=== PATIENT | male | born 1980 | race African-American/Black ===

== ENCOUNTER 2017-05-21 18:16 | Emergency (ER) | payer OTHER ==
[~2017-05-21] VITALS: Ht 165.1 cm; Wt 79.5 kg
[~2017-05-21 18:16] MED LIST: ALBU8.5H3 INH; CETI10CA PO; FLUT9.9S NASAL; GUAI473L22 PO; IBUP-1542 PO
[2017-05-21 18:29] VITALS: Ht 165.1 cm; Wt 79.5 kg
--- NOTE | 2017-05-21 20:31 | ERD ---
ER Documentation Chief Complaint Chief Complaint right hand pain/ 4&5 finger swelling x2 days. HPI 36-year-old male presents here to emergency department for complaints of right hand pain and swelling for 2 days. Patient fell on the right hand, landed on the dorsal aspect of the right hand, noted some swelling and pain, unable to remove the ring on the fourth and fifth finger because of the swelling. Patient 's complaint of pain throbbing pain, 6/10 scale, worse upon touching the area and movement. Patient did not take any medications to help with symptoms. Patient denies any numbness or tingling. Patient did not take any medications to help with symptoms. ROS All systems reviewed and are negative except as per history of present illness. Medications Home Meds Active Scripts Hydrocodone/Acetaminophen ([place]ora 5-325 Tablet) 1 Each Tablet, 1 TAB PO Q6H Y for SEVERE PAIN LEVEL 7-10, #20 TAB Prov:BEBETO AN NP 05/21/17 Ibuprofen* (Motrin*) 600 Mg Tab, 600 MG PO Q6H Y for PAIN AND OR ELEVATED TEMP, #30 TAB Prov:BEBETO AN NP 05/21/17 Fluticasone Propionate (Flonase Allergy Relief) 9.9 Ml [place].susp, 1 SPRAY NASAL BID, #1 BOTTLE TO EACH NOSTRIL Prov:BEBETO AN NP 02/24/16 Ibuprofen* (Motrin*) 600 Mg Tab, 600 MG PO Q6H Y for PAIN AND OR ELEVATED TEMP, #30 TAB Prov:BEBETO AN NP 02/24/16 Cetirizine Hcl* (Zyrtec*) 10 Mg Capsule, 10 MG PO DAILY, #30 TAB.CHEW Prov:BEBETO AN NP 02/24/16 Guaifenesin-Codeine Phosphate* (Guaifenesin* AC Cough Syrup) 473 Ml Liquid, 5 ML PO Q4H Y for COUGH, #60 ML Prov:BEBETO AN NP 02/24/16 Albuterol Sulfate* (Proair HFA*) 8.5 Gm Hfa.aer.ad, 2 PUFF INH Q4H Y for WHEEZING AND SOB, #1 INHALER Prov:BEBETO AN NP 02/24/16 Reported Medications [none] Unknown Strength No Conflict Check 02/24/16 Allergies Allergies: Coded Allergies: tramadol (Verified Allergy, Mild, 05/21/17) PMhx/Soc History of Surgery: No Anesthesia Reaction: No Hx Neurological Disorder: No Hx Respiratory Disorders: Yes (bronchitis) Hx Cardiac Disorders: No Hx Psychiatric Problems: No Hx Miscellaneous Medical Probl: No Hx Alcohol Use: Yes (socially) Hx Substance Use: Yes (daily: last used today) Hx Tobacco Use: Yes Smoking Status: Current some day smoker FmHx Family History: No coronary disease, No diabetes, No other Physical Exam Vitals Vital Signs Date Time Temp Pulse Resp B/P Pulse Ox O2 Delivery O2 Flow Rate FiO2 05/21/17 18:29 97.0 89 20 138/69 99 Physical Exam GENERAL: The patient is well developed and appropriate for usual state of health, in no apparent distress. CHEST: Clear to auscultation bilaterally. There are no rales, wheezes or rhonchi. HEART: Regular rate and rhythm. No murmurs, clicks, rubs or gallops. No S3 or S4. ABDOMEN: Soft, nontender and nondistended. Good bowel sounds. No rebound or guarding. No gross peritonitis. No gross organomegaly or masses. No Booth sign or McBurney point tenderness. BACK: No midline or flank tenderness. EXTREMITIES: Swelling, tenderness on palpation on the dorsal aspect of the right hand, the level of the fourth and fifth metacarpal, noted swelling on the fourth and fifth finger with rings stuck in it. Good circulation noted. Equal pulses bilaterally. There is no peripheral clubbing, cyanosis or edema. No focal swelling or erythema. Full range of motion. Grossly neurovascularly intact. NEURO: Alert and oriented. Cranial nerves 2-12 intact. Motor strength in all 4 extremities with 5/5 strength. Sensation grossly intact. Normal speech and gait. SKIN: There is no apparent rash or petechia. The skin is warm and dry. HEMATOLOGIC AND LYMPHATIC: There is no evidence of excessive bruising or lymphedema. No gross cervical, axillary, or inguinal lymphadenopathy. Results 24 hrs PROCEDURE: XR Hand. CLINICAL INDICATION: Right hand injury TECHNIQUE: PA, oblique and lateral views of the right hand were obtained. COMPARISON: None available. FINDINGS: Mineralization is within normal limits. Abnormal oblique lucency through the metacarpal neck is present consistent with an acute, closed, nondisplaced spiral type fracture without displacement of the fracture fragments. No additional fractures are noted. Joint spaces are preserved. Diffuse soft tissue swelling is present. No radiopaque foreign body is present. RPTAT:HJJR IMPRESSION: Acute, closed, nondisplaced extra-articular spiral type fracture involving the fourth metacarpal neck of the right hand. Preston Pelayo Physician Date Time Electronically viewed and signed by Preston Pelayo Physician on 05/21/2017 21:21 JR/ CC: BEBETO AN SHOP COORDINATOR After receiving patients xray report, a boxer splint was applied on the patient s right hand. After application of the splint, patient has intact sensation and circulation on distal area of the affected joint. Patient does not complain of numbness or tingling after application of the splint. Patient tolerated procedure well. The sling was given to use afterwards. Procedures/MDM Procedure note: Patient after patient's consent, the rings on both fourth and fifth finger were removed using a ring cutter without any difficulty. No symptoms of any neurovascular compromise, tolerated procedure well. Medical Decision Making: Patient's pain is most likely consistent with a hand fracture. There is no suspicion for neurovascular compromise. Patient has intact sensation and circulation of the affected extremity. There is low suspicion for septic arthritis. Patient does not have any fever. Radiology exams of the affected area does not show any dislocation. Disposition: Home. Patient is given prescription for ibuprofen for pain, Grenora for severe pain. Patient was advised to elevate the affected area and apply ice on affected area. Patient was advised that if symptoms are worse, numbness , tingling, high fever, unable to move joint, worsening symptoms, to return to emergency department immediately. Otherwise, patient is advised to follow up with the primary care doctor in 5-7 days for reevaluation of symptoms. See orthopedic hand surgeon within 3-4 days. Keep splint and sling in place. Disclaimer: Inadvertent spelling and grammatical errors are likely due to EHR/ dictation software use and do not reflect on the overall quality of patient care. Also, please note that the electronic time recorded on this note does not necessarily reflect the actual time of the patient encounter. Departure Diagnosis: Primary Impression: Hand fracture Encounter type: initial encounter Fracture type: closed Laterality: right Qualified Code: S62.91XA - Closed fracture of right hand, initial encounter Additional Impression: Foreign body finger Condition: Stable Patient Instructions: Fracture, Hand (Closed) Additional Instructions: Patient is given prescription for ibuprofen for pain, Grenora for severe pain. Patient was advised to elevate the affected area and apply ice on affected area. Patient was advised that if symptoms are worse, numbness, tingling, high fever, unable to move joint, worsening symptoms, to return to emergency department immediately. Otherwise, patient is advised to follow up with the primary care doctor in 5-7 days for reevaluation of symptoms. See orthopedic hand surgeon within 3-4 days. Keep splint and sling in place. BEBETO AN NP May 21, 2017 20:31
--- NOTE | 2017-05-21 21:21 | RADRPT ---
PROCEDURE: XR Hand. CLINICAL INDICATION: Right hand injury TECHNIQUE: PA, oblique and lateral views of the right hand were obtained. COMPARISON: None available. FINDINGS: Mineralization is within normal limits. Abnormal oblique lucency through the metacarpal neck is pres ent consistent with an acute, closed, nondisplaced spiral type fracture without displacement of the fracture fragments. No additional fractures are noted. Joint spaces are preserved. Diffuse soft ti ssue swelling is present. No radiopaque foreign body is present. RPTAT:HJJR IMPRESSION: Acute, closed, nondisplaced extra-articular spiral type fracture involving the fourth metacarpal nec k of the right hand. Physician Corey Date Time Electronically viewed and signed by Physician Corey on 05/21/2017 21:21 /
[2017-05-21] MEDS ORDERED: IBUP-1542 PO (21:45)
[2017-05-21] MEDS ORDERED: HYDR-906 PO (21:45)
[2017-05-21] MEDS ORDERED: HYDROCODONE/APAP (5/325) TAB PO ONE (22:00)
[2017-05-21 22:08] VITALS: BP 139/67; PULSE 74; RESP 18; TEMP 98.8
== END 2017-05-21 22:09 | disposition home or self-care (01) ==
LOC: FTE 18:16
DX: S62.366A Nondisplaced fracture of neck of fifth metacarpal bone, right hand, initial encounter for closed fracture (principal); S60.442A External constriction of right middle finger, initial encounter; S60.444A External constriction of right ring finger, initial encounter; F17.210 Nicotine dependence, cigarettes, uncomplicated; W49.04XA Ring or other jewelry causing external constriction, initial encounter; Y92.9 Unspecified place or not applicable
CPT/HCPCS: 29125; 73130; Z7502; Z7610

== ENCOUNTER 2018-01-14 06:57 | Emergency (ER) | END 2018-01-14 10:27 | disposition home or self-care (01) ==